=== PATIENT | female | born 1965 | race Caucasian/White ===

== ENCOUNTER → 2017-05-15 06:41 | Outpatient (CLI) | payer BC ==
[~2017-05-15 06:41] MED LIST: BASAGLAR K100 UNIT/1 SC; CARDURA2 MG PO; COREG25 MG PO; FUROSEMIDE20 MG PO; HUMALOG MIX 50/53 ML SC; MECLIZINE HCL25 MG PO; RENVELA800 MG PO; ROCALTROL0.25 MCG PO; ZANTAC150 MG PO; ZOLOFT100 MG PO
[2017-05-15 07:40] VITALS: BP 163/87; BMI 45.8
[2017-05-15 07:48] LABS: BASOPHILS 0.2 % (0-2); EOSINOPHILS 2.4 % (0-7); IMMATURE GRANULOCYTES 0.5 % (0-5); LYMPHOCYTES 14.7 % (15-50); MCH 27.2 pg (26.0-34.0); MCHC 33.3 g/dL (31.0-37.0); MCV 81.7 fL (80.0-100.0); MEAN PLATELET VOLUME 9.1 fL (7.4-10.4); MONOCYTES 5.3 % (2-11); NEUTROPHILS 76.9 % (40-80); PLATELET COUNT 131 10x3/uL (130-400); RBC 4.04 10x6/uL (4.00-5.40); RDW 14.9 % (11.5-14.5); WBC 6.2 10x3/uL (4.8-10.8)
[2017-05-15 07:57] LABS: APTT 32.7 SECONDS (22.8-39.4); INR 0.99 (0.85-1.17)
[2017-05-15 08:00] LABS: % SATURATION 15 % (15-55); IRON 38 ug/dl (35-150); TOTAL IRON BIND CAPACITY 244 ug/dl (260-445); UNSAT IRON BIND CAPACITY 206 ug/dl (150-375)
[2017-05-15 08:20] LABS: ALBUMIN 3.1 g/dL (3.4-5.0); ANION GAP 14.5 mmol/L (8-16); CALCIUM 8.1 mg/dL (8.5-10.1); CARBON DIOXIDE 20.6 mmol/L (21.0-32.0); CHOL - HDL RATIO 5.7 ratio (2.3-4.1); CREATININE - SERUM 4.6 mg/dL (0.6-1.3); LDL-HDL RATIO 2.9 ratio (1.5-3.5); POTASSIUM - SERUM 4.1 mmol/L (3.5-5.1)
--- NOTE | 2017-05-15 09:55 | NUR ---
R'ANTONINO FROM [employer] COOL CLOTH OVER FOREHEAD REPORT FROM SANDIP BELLO RN STATES PT C/O HEADACHE. REGULAR BREAKFAST TRAY PROVIDED W/DIET COLA. SEE FREQUENT VS SHEET FOR ALL VS.
--- NOTE | 2017-05-15 10:38 | NUR ---
PABLITO BREAKFAST WELL HEADACHE BETTER. DENIES ANY NEEDS AT THIS TIME VSS PROCEDURE SITE CDI
--- NOTE | 2017-05-15 11:30 | NUR ---
SITTING UP IN BED PLAYING ON IPAD VISITORS AT BEDSIDE DENIES ANY NEEDS AT THIS TIME.
--- NOTE | 2017-05-15 12:30 | NUR ---
PT ASSISTED UP TO BR BY JUAN JOHNSON RN. VD WELL PIV REMOVED W/CATHETER TIP INACT. ASSISTED W/GETTING DRESSED.
--- NOTE | 2017-05-15 13:20 | NUR ---
PT C/O MILD HEADACHE ICE PACK GIVEN PER REQUEST.
--- NOTE | 2017-05-15 14:10 | NUR ---
PT STATES MADSEN BETTER.
--- NOTE | 2017-05-15 14:15 | NUR ---
PT ASLEEP AWAKENED BY . DC TEACHING COMPLETE PT VU.
--- NOTE | 2017-05-15 14:25 | NUR ---
PT DC HOME W/ OUT VIA WC NO DISTRESS NOTED.
[2017-05-16 07:24] LABS: ALPHA FETOPROTEIN -(TUMOR MRK) 3.3 ng/mL (0.0-8.3); FOLATE (FOLIC ACID) - SERUM 3.7 ng/mL (>3.0)
[2017-05-16 09:12] LABS: HEPATITIS C ANTIBODY <0.1 (0.0-0.9)
[2017-05-18 03:06] LABS: HAPTOGLOBIN 70 mg/dL (34-200)
[2017-05-18 10:12] LABS: ANA REFLEX - DIRECT Negative (Negative)
[2017-05-18 16:13] LABS: MITOCHONDRIAL ANTIBODY 3.5 Units (0.0-20.0); SMOOTH MUSCLE ABS (ACTIN) 10 Units (0-19)
== END | disposition home or self-care (01) ==
LOC: D.CT 04-17 14:00 → D.OPS 06:41 → D.CT 09:00
PROVIDERS: General Practice; Internal Medicine Gastroenterology
DX: R16.0 Hepatomegaly, not elsewhere classified (principal); R16.1 Splenomegaly, not elsewhere classified; N18.9 Chronic kidney disease, unspecified; Z01.812 Encounter for preprocedural laboratory examination; E66.01 Morbid (severe) obesity due to excess calories; Z68.42 Body mass index [BMI] 45.0-49.9, adult

== ENCOUNTER → 2017-05-27 07:04 | Outpatient (CLI) | payer BC ==
[2017-05-15 07:40] VITALS: BMI 45.8
== END | disposition home or self-care (01) ==
LOC: D.LAB 04-20 07:45 → D.US 04-20 08:00 → D.LAB 07:04
DX: N18.9 Chronic kidney disease, unspecified (principal); R16.0 Hepatomegaly, not elsewhere classified; R16.1 Splenomegaly, not elsewhere classified

== ENCOUNTER 2017-06-24 10:07 | Day surgery (SDC) | payer BC ==
[~2017-06-24] VITALS: Ht 157.5 cm; Wt 120.9 kg
[2017-06-24 11:09] VITALS: BP 163/83; Ht 157.5 cm; Wt 120.9 kg
[2017-06-24 11:14] LABS: HEMATOCRIT 32.2 % (36.0-48.0); HEMOGLOBIN 10.5 g/dL (12-16); MCH 27.3 pg (26.0-34.0); MCHC 32.6 g/dL (31.0-37.0); MCV 83.9 fL (80.0-100.0); MEAN PLATELET VOLUME 9.7 fL (7.4-10.4); RBC 3.84 10x6/uL (4.00-5.40); RDW 15.2 % (11.5-14.5); WBC 6.2 10x3/uL (4.8-10.8)
[2017-06-24 11:31] LABS: ANION GAP 14.6 mmol/L (8-16); CALCIUM 8.6 mg/dL (8.5-10.1); CARBON DIOXIDE 21.8 mmol/L (21.0-32.0); CREATININE - SERUM 4.9 mg/dL (0.6-1.3); POTASSIUM - SERUM 4.4 mmol/L (3.5-5.1)
--- NOTE | 2017-06-24 14:52 | NUR ---
1445-IV DC'D, PT UP TO DRESS AT THIS TIME. GEOFFREY FAYE 2500--DISCHARGE INSTRUCTIONS GIVEN, PT VERBALIZES UNDERSTANDING. PT OFF UNIT VIA WC. GEOFFREY FAYE
--- NOTE | 2017-06-30 11:02 | OP ---
PATIENT NAME: LAMIN SANCHES MEDICAL RECORD: [id number] :65 LOCATION:[facility] ADMISSION DATE: SURGEON: ANGIE WARREN DO DATE OF OPERATION: 06/24/2017 PROCEDURE: EGD with biopsies. INDICATION FOR PROCEDURE: Abnormal CT scan showing hepatomegaly, splenomegaly, and periportal varices. SCOPE: Olympus video gastroscope. MEDICATIONS: Propofol 150 mg IV per anesthesia. ESTIMATED BLOOD LOSS: Minimal. COMPLICATIONS: None. FINDINGS: Informed consent was given. The patient was made comfortable with the above medication. After reaching an adequate level of sedation by slow IV push, the patient was placed on her left side. The endoscope was then advanced under direct visualization through the mouth to the second portion of the duodenum. The upper, middle, and lower thirds of the esophagus appeared normal. There were no obvious esophageal varices present. At the GE junction, there was very mild evidence of LA class A reflux-induced esophagitis. The endoscope was then advanced beyond the GE junction into the stomach and retroflexed to view the cardia, where a small sliding hiatal hernia was present. The fundus appeared normal without evidence of gastric varices. In the body, antrum, and prepyloric regions of the stomach, there were patchy areas of erythema and granularity and some erosions consistent with medication-induced erosions and gastritis. The endoscope was advanced beyond the pylorus into the duodenum where the bulb and second portion of the duodenum appeared normal. The endoscope was then withdrawn from the patient. The patient tolerated the procedure well and there were no complications. IMPRESSION: 1. LA class A reflux-induced esophagitis. 2. Small sliding hiatal hernia. 3. Gastritis and erosions consistent with medication-induced injury. PLAN AND RECOMMENDATIONS: 1. Discharge home when recovery parameters are met. 2. Continue current diet. 3. Continue current medications including ranitidine 150 mg daily. 4. Follow up in GI clinic as scheduled. 5. Repeat EGD as needed. No surveillance required. TRANSINT:[id number] Voice Confirmation ID: [id number] DOCUMENT ID: [id number] OPERATIVE REPORT [id number] LAMIN SANCHES ANGIE WARREN DO at 5631 CC: [id number] DICTATION DATE: 06/24/17 1240 ENTRY LEVEL MANAGEMENT: 06/24/17 1303 DEP SDC 06/24/17 [facility] [address] [place] [address]
== END 2017-06-24 14:52 | disposition home or self-care (01) ==
LOC: D.OPS 10:07
PROVIDERS: Anesthesiology
DX: K21.0 Gastro-esophageal reflux disease with esophagitis (principal); K44.9 Diaphragmatic hernia without obstruction or gangrene; K29.00 Acute gastritis without bleeding; Z01.812 Encounter for preprocedural laboratory examination

== ENCOUNTER → 2017-07-02 16:05 | Outpatient (CLI) | payer BC ==
[2017-06-24 11:09] VITALS: BMI 48.8
[2017-07-02 16:53] LABS: ALBUMIN 3.4 g/dL (3.4-5.0); BILIRUBIN - DIRECT 0.08 mg/dL (0.00-0.30); BILIRUBIN - INDIRECT 0.2 mg/dL (0.00-1.00); BILIRUBIN - TOTAL 0.28 mg/dL (0.2-1.3); PROTEIN - SERUM 7.1 g/dL (6.4-8.2)
== END | disposition home or self-care (01) ==
LOC: D.LAB 16:05
PROVIDERS: Internal Medicine Gastroenterology
DX: N18.9 Chronic kidney disease, unspecified (principal); R16.0 Hepatomegaly, not elsewhere classified; R16.1 Splenomegaly, not elsewhere classified; E66.01 Morbid (severe) obesity due to excess calories

== ENCOUNTER 2017-07-29 10:31 | Day surgery (SDC) | payer BC ==
[~2017-07-29] VITALS: Ht 157.5 cm; Wt 120.9 kg
[2017-07-29 11:06] VITALS: BP 176/71; Ht 157.5 cm; Wt 120.9 kg
[2017-07-29 12:34] LABS: ANION GAP 18.2 mmol/L (8-16); CALCIUM 8.5 mg/dL (8.5-10.1); CARBON DIOXIDE 20.2 mmol/L (21.0-32.0); CREATININE - SERUM 4.6 mg/dL (0.6-1.3); POTASSIUM - SERUM 4.4 mmol/L (3.5-5.1)
--- NOTE | 2017-07-29 13:17 | NUR ---
1337 COLD SNARE USED FOR TRANSVERSE COLON POLYP.
--- NOTE | 2017-07-29 13:22 | NUR ---
SOME AREAS BURNED WITH HOT FORCEPS.
--- NOTE | 2017-07-30 10:48 | OP ---
PATIENT NAME: LAMIN SANCHES MEDICAL RECORD: [id number] :65 LOCATION:[facility] ADMISSION DATE: SURGEON: ANGIE WARREN DO DATE OF OPERATION: 07/29/2017 PROCEDURE: Colonoscopy with polypectomy. INDICATIONS FOR PROCEDURE: Screening colonoscopy. SCOPE: Olympus video pediatric colonoscope. MEDICATIONS: Propofol 450 mg IV per anesthesia. WITHDRAWAL TIME: 12 minutes. ESTIMATED BLOOD LOSS: Minimal. COMPLICATIONS: None. FINDINGS: Informed consent was given. The patient was made comfortable with the above medication. After reaching an adequate level of sedation by slow IV push, the patient was placed on her left side. A digital rectal examination was performed and was normal. The endoscope was then advanced under direct visualization through the mouth to the cecum with visualization of the ileocecal valve and appendiceal orifice. The scope was slowly withdrawn and mucosa was carefully examined. The prep quality was inadequate and poor. That being said, there were 2 polyps visualized in the transverse colon which were removed using a cold snare. These polyps ranged in size from 4-6 mm in diameter. There were a few scattered diverticula visualized throughout different segments of the bowel. Retroflexion was performed in the rectum with visualization of small nonbleeding internal hemorrhoids (grade I). Scope was then withdrawn from the patient. The patient tolerated the procedure well and there were no complications. IMPRESSION: 1. Two polyps in the transverse colon, removed using cold snare. 2. Grade I internal hemorrhoids. 3. Scattered diverticula. 4. Inadequate prep. PLAN AND RECOMMENDATIONS: 1. Discharge home when recovery parameters are met. 2. Follow up biopsy specimen results. 3. High fiber diet. 4. Continue current medications. 5. Repeat colonoscopy at the patient's convenience due to the inadequate prep. TRANSINT:[id number] Voice Confirmation ID: [id number] DOCUMENT ID: [id number] OPERATIVE REPORT [id number] LAMIN SANCHES ANGIE WARREN DO at 1048 CC: [id number] DICTATION DATE: 07/29/17 [address] [employer] [employer] DECORATOR: 07/29/17 1359 [facility] 07/29/17 [place] [address]
== END 2017-07-29 14:45 | disposition home or self-care (01) ==
LOC: D.OPS 10:31
PROVIDERS: Anesthesiology
DX: Z12.11 Encounter for screening for malignant neoplasm of colon (principal); D12.3 Benign neoplasm of transverse colon; K57.30 Diverticulosis of large intestine without perforation or abscess without bleeding; K64.0 First degree hemorrhoids; Z01.812 Encounter for preprocedural laboratory examination

== ENCOUNTER → 2018-01-08 08:29 | Outpatient (CLI) | payer BC ==
[2017-07-29 11:06] VITALS: BMI 48.8
[~2018-01-08 08:29] MED LIST changes: +COZAAR25 MG PO; +HYDRALAZINE HCL25 MG PO; +LANTUS INSULIN10 ML SC
[2018-01-08 12:43] LABS: ALBUMIN 3.2 g/dL (3.4-5.0); BILIRUBIN - DIRECT 0.09 mg/dL (0.00-0.30); BILIRUBIN - INDIRECT 0.27 mg/dL (0.00-1.00); BILIRUBIN - TOTAL 0.36 mg/dL (0.2-1.3); PROTEIN - SERUM 6.7 g/dL (6.4-8.2)
== END | disposition home or self-care (01) ==
LOC: D.US 08:29
PROVIDERS: Internal Medicine Gastroenterology
DX: K76.0 Fatty (change of) liver, not elsewhere classified (principal)

== ENCOUNTER 2018-02-08 10:01 | Day surgery (SDC) | payer BC ==
[~2018-02-08] VITALS: Ht 157.5 cm; Wt 113.6 kg
--- NOTE | ~2018-02-08 | OP ---
PATIENT NAME: LAMIN SANCHES MEDICAL RECORD: [id number] :65 LOCATION:[facility] ADMISSION DATE: SURGEON: ANGIE WARREN DO DATE OF OPERATION: 02/08/2018 PROCEDURE: Colonoscopy with polypectomy. INDICATION FOR PROCEDURE: Personal history of colonic polyps and screening for colorectal cancer. SCOPE: [employer] video pediatric colonoscope. MEDICATIONS: Propofol 450 mg IV per anesthesia. WITHDRAWAL TIME: 25 minutes. ESTIMATED BLOOD LOSS: Minimal. COMPLICATIONS: None. FINDINGS: Informed consent was given. The patient was made comfortable with the above medication. After reaching an adequate level of sedation by slow IV push, the patient was placed on her left side. A digital rectal examination was performed and was normal. The endoscope was then advanced under direct visualization through the rectum to the cecum, confirmed by the appendiceal orifice and the ileocecal valve. The endoscope was slowly withdrawn. Mucosa was carefully examined. The prep quality was fair. There were 4 polyps visualized on today's examination. The first was located in the ascending colon. It was a benign-appearing sessile polyp which measured approximately 4 mm in diameter. It was removed using hot forceps in one piece and completely retrieved. A second polyp was located in the transverse colon. It was a benign-appearing sessile polyp which measured approximately 5-6 mm in diameter. It was removed using hot forceps in one piece and completely retrieved. Two polyps were located in the descending colon. One was a larger polyp which measured approximately 1.1-1.2 cm in diameter. It was removed using a hot snare followed by combination of hot forceps and hot snare to clean residual area of polypoid tissue up. The entire site was removed and cauterized. The second polyp was a smaller benign-appearing sessile polyp, which measured approximately 3-4 mm in diameter. It was removed using hot forceps in one piece and completely retrieved. There were few scattered diverticula noted throughout the entire colon. Retroflexion was performed in the rectum with visualization of grade I internal hemorrhoids, which were not bleeding. The endoscope was then withdrawn from the patient. The patient tolerated the procedure well and there were no complications. IMPRESSION: 1. Multiple polyps as described above, removed using combination of hot snare and hot forceps. 2. Mild diverticulosis scattered throughout the entire colon. 3. Grade I internal hemorrhoids without bleeding. PLAN AND RECOMMENDATIONS: 1. Discharge home when recovery parameters are met. 2. Followup biopsy specimen results. 3. High-fiber diet. OPERATIVE REPORT [id number] LAMIN SANCEHS 4. Continue current medications. 5. Recall colonoscopy in 3 years for surveillance based on personal history of colon polyps. TRANSINT:[id number] Voice Confirmation ID: [id number] DOCUMENT ID: [id number] ANGIE WARREN DO at 1255 CC: [id number] DICTATION DATE: 02/08/18 1402 KENO DEALER: 02/08/18 1453 [facility] 02/08/18 [facility] [address] [place] [address]
[~2018-02-08 10:01] MED LIST changes: -COZAAR25 MG PO; -HYDRALAZINE HCL25 MG PO; -LANTUS INSULIN10 ML SC
[2018-02-08 10:50] LABS: ANION GAP 17.5 mmol/L (8-16); CALCIUM 8.1 mg/dL (8.5-10.1); CARBON DIOXIDE 17.8 mmol/L (21.0-32.0); CREATININE - SERUM 5.1 mg/dL (0.6-1.3); POTASSIUM - SERUM 4.3 mmol/L (3.5-5.1)
[2018-02-08 11:11] LABS: BASOPHILS 0.3 % (0-2); EOSINOPHILS 1.6 % (0-7); HEMATOCRIT 32.6 % (36.0-48.0); HEMOGLOBIN 10.5 g/dL (12-16); IMMATURE GRANULOCYTES 0.4 % (0-5); LYMPHOCYTES 10.2 % (15-50); MCH 26.3 pg (26.0-34.0); MCHC 32.2 g/dL (31.0-37.0); MCV 81.7 fL (80.0-100.0); MEAN PLATELET VOLUME 10.4 fL (7.4-10.4); MONOCYTES 4.7 % (2-11); NEUTROPHILS 82.8 % (40-80); PLATELET COUNT 119 10x3/uL (130-400); RBC 3.99 10x6/uL (4.00-5.40); RDW 15.4 % (11.5-14.5)
[2018-02-08] MEDS ORDERED: LANTUS INSULIN10 ML SC (12:03)
[2018-02-08] MEDS ORDERED: HYDRALAZINE HCL25 MG PO (12:07)
[2018-02-08] MEDS ORDERED: COZAAR25 MG PO (12:07)
[2018-02-08 12:12] VITALS: Ht 157.5 cm; Wt 113.6 kg
== END 2018-02-08 15:30 | disposition home or self-care (01) ==
LOC: D.OPS 10:01
PROVIDERS: Anesthesiology
DX: Z12.11 Encounter for screening for malignant neoplasm of colon (principal); D12.2 Benign neoplasm of ascending colon; D12.4 Benign neoplasm of descending colon; D12.3 Benign neoplasm of transverse colon; K57.30 Diverticulosis of large intestine without perforation or abscess without bleeding; K64.0 First degree hemorrhoids; Z86.010 Personal history of colon polyps; Z01.812 Encounter for preprocedural laboratory examination